=== PATIENT | male | born 1955 | race Caucasian/White ===

== ENCOUNTER 2022-01-13 13:44 | Observation (INO) | payer MEDICARE ==
[~2022-01-13] VITALS: Ht 180.3 cm; Wt 85.7 kg
[~2022-01-13 13:44] MED LIST: PREDNISONE10 MG PO; VIBRAMYCIN100 MG PO
[2022-01-13 15:14] LABS: HEMOGLOBIN 14.9 gm/dl (14.0-17.5); RED BLOOD COUNT 4.75 M/UL (4.20-5.50); WHITE BLOOD COUNT 12.3 K/UL (4.5-11.0)
[2022-01-13 15:38] LABS: BUN/CREATININE RATIO 21 (0-10)
[2022-01-13] MEDS ORDERED: CRESTOR20 MG PO (22:23)
[2022-01-13] MEDS ORDERED: ASPIRIN81 MG PO (22:23)
[2022-01-13] MEDS ORDERED: PLAVIX 75 MG TA75 MG PO (22:23)
[2022-01-13] MEDS ORDERED: ISOSORBIDE MONO30 MG PO (22:24)
[2022-01-13] MEDS ORDERED: LEVOTHYROXINE50 MCG PO (22:24)
[2022-01-13] MEDS ORDERED: TRELEGY ELLIPT1 EACH INH (22:25)
[2022-01-13] MEDS ORDERED: VENTOLIN/PROVE0.5 ML INH (22:25)
[2022-01-13] MEDS ORDERED: MUCINEX600 MG PO (22:26)
[2022-01-13] MEDS ORDERED: CENTRUM COMPLE1 EACH PO (22:26)
[2022-01-13] MEDS ORDERED: NEURONTIN800 MG PO (22:26)
[2022-01-13] MEDS ORDERED: KLONOPIN1 MG PO (22:27)
[2022-01-13] MEDS ORDERED: ZANAFLEX4 MG PO (22:27)
[2022-01-13] MEDS ORDERED: HYDROCODON-ACE1 EAC6 PO (22:28)
[2022-01-13] MEDS ORDERED: IBUPROFEN800 MG PO (22:28)
[2022-01-14 03:40] LABS: RED BLOOD COUNT 4.79 M/UL (4.20-5.50); WHITE BLOOD COUNT 13.7 K/UL (4.5-11.0)
--- NOTE | 2022-01-14 03:44 | NUR ---
0309-PATIENT RANG OUT AND SAID THAT HE WAS HAVING CHEST PAIN AND NUMBNESS IN BILATERAL ARMS. UPON ASSESSMENT OF PATIENT HE SAID HIS CHEST FELT EXTREMELY HEAVY. BP WAS 168/89 HR 56. PAIN RATED 10/10 I PLACED PATIENT ON 2LNC GAVE PATIENT ONE NITRO SL AT THIS TIME. PATIENT STATED THAT HIS PAIN WAS EASING OFF SOME AFTER THIS DOSE. 0314-PATIENT RECEIVED ANOTHER NITRO SL BP 142/75. PAIN RATED A 5/10 BUT GETTING BETTER AFTER RECEIVING 2ND NITRO. 0319-PATINET HAD NO PAIN AT THIS TIME. BP 127/69 HR 61
[2022-01-14 04:07] LABS: BUN/CREATININE RATIO 22 (0-10)
[2022-01-15 02:36] LABS: HEMOGLOBIN 15.3 gm/dl (14.0-17.5); RED BLOOD COUNT 4.91 M/UL (4.20-5.50); WHITE BLOOD COUNT 10.9 K/UL (4.5-11.0)
[2022-01-15 03:02] LABS: BUN/CREATININE RATIO 15 (0-10)
== END 2022-01-15 07:48 | disposition short-term general hospital (02) ==
LOC: ER1 13:44 → MED SURG 4 17:47 → CDU 17:47 → MED SURG 4 21:28
PROVIDERS: Emergency Medicine; Internal Medicine; ADMIT Internal Medicine
DX: I25.110 Atherosclerotic heart disease of native coronary artery with unstable angina pectoris (principal); I10 Essential (primary) hypertension; I25.2 Old myocardial infarction; E78.5 Hyperlipidemia, unspecified; J60 Coalworker's pneumoconiosis; R00.1 Bradycardia, unspecified; D72.829 Elevated white blood cell count, unspecified; G62.9 Polyneuropathy, unspecified; E03.9 Hypothyroidism, unspecified; M62.838 Other muscle spasm; J44.9 Chronic obstructive pulmonary disease, unspecified; Z95.1 Presence of aortocoronary bypass graft; Z95.5 Presence of coronary angioplasty implant and graft; Z88.0 Allergy status to penicillin; Z88.8 Allergy status to other drugs, medicaments and biological substances; Z72.0 Tobacco use; Z79.82 Long term (current) use of aspirin; Z79.02 Long term (current) use of antithrombotics/antiplatelets; Z79.890 Hormone replacement therapy; Z79.899 Other long term (current) drug therapy
CPT/HCPCS: ECHO; 36415; 71045; 80053; 82550; 82553; 84484; 85025; 85027; 85610; 85730; 93005; 93306; 99285; G0378; J0360; J1644; J1650; J2270